=== PATIENT | male | born 1940 | race Caucasian/White ===

== ENCOUNTER 2018-01-01 05:10 | Emergency (ER) | payer OTHER ==
[~2018-01-01] VITALS: Ht 193 cm; Wt 100.3 kg
[2018-01-01 05:52] LABS: HEMATOCRIT 40.4 % (38.0-50.0); HEMOGLOBIN 13.8 G/DL (12.5-16.6); MCH 29.4 PG (29.0-34.0); MCHC 34.2 G/DL (30.0-36.0); MCV 86.1 FL (86-99); PLATELET COUNT 264 K/uL (156-360); RBC DIS.WIDTH-CV 13.3 % (11.8-14.6); RBC DIS.WIDTH-SD 41.8 % (39-53); RED BLOOD COUNT 4.69 M/uL (4.00-5.50); WHITE BLOOD COUNT 6.7 K/uL (4.1-10.2)
[2018-01-01 05:59] LABS: CHLORIDE 106 mEq/L (99-109); POTASSIUM 3.8 mEq/L (3.7-5.4); SODIUM 139 mEq/L (136-147)
[2018-01-01 06:01] LABS: GLUCOSE 125 mg/dL (70-99)
[2018-01-01 06:05] LABS: CREATININE 1.1 mg/dL (0.6-1.3); GFR ESTIMATE (CALCULATED) > 59 mL/min/ (58.99-99999)
[2018-01-01 06:06] LABS: UREA NITROGEN (BUN) 17 mg/dL (9-23)
[2018-01-01] MEDS ORDERED: ANTIVERT25 MG PO (08:06)
[2018-01-01 08:55] VITALS: BP 120/75
== END 2018-01-01 08:57 | disposition home or self-care (01) ==
LOC: EME 05:10
DX: R42 Dizziness and giddiness (principal); R25.1 Tremor, unspecified; R53.81 Other malaise
CPT/HCPCS: 70450; 71046; 80048; 85027; 93005; 99281; 99284